=== PATIENT | male | born 1995 | race Caucasian/White ===

== ENCOUNTER 2024-01-01 13:28 | Emergency (ER) | payer OTHER ==
[~2024-01-01] VITALS: Ht 185.4 cm; Wt 118.2 kg
[2024-01-01 13:40] VITALS: BP 128/85; TEMP 98.2
[2024-01-01] MEDS ORDERED: Tdap Vaccine 0.5 ML SYRINGE IM ONE (14:45)
[2024-01-01] MEDS ORDERED: Cephalexin 500 MG CAP PO ONE (14:45)
[2024-01-01] MEDS ORDERED: CEPHALEXIN500 M1 PO (15:40)
[2024-01-01 16:29] VITALS: PULSE 89
== END 2024-01-01 16:39 | disposition home or self-care (01) ==
LOC: COL.ER 13:28
DX: S61.217A Laceration without foreign body of left little finger without damage to nail, initial encounter (principal); S61.215A Laceration without foreign body of left ring finger without damage to nail, initial encounter; W26.8XXA Contact with other sharp object(s), not elsewhere classified, initial encounter